=== PATIENT | male | born 1960 | race Two or more races ===

== ENCOUNTER 2018-10-01 12:54 | Inpatient (IN) | payer MEDICAID, OTHER ==
[2018-10-01] MEDS ORDERED: NS 1,000 ML IV ONE (13:22)
[2018-10-01] MEDS ORDERED: NS 500 ML IV ONE (13:42)
--- NOTE | 2018-10-01 13:45 | EDPHY ---
H & P Time Seen by Provider: 10/01/18 13:20 HPI/ROS: HPI Fainting event, facial injury. 58-year-old male by private vehicle with his supervisor carpenters. 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 He walked up some stairs and as he was walking up the stairs he started to feel lightheaded. This then passed he got up to the top of the stairs and felt lightheaded again. It again past after a minute or 2. He then states that he walked into a cord or the light headedness hit him again and he blacked out. He fell to the ground striking his right forehead and his nose. He has a history of type 1 diabetes. He also has a history of end-stage renal disease and is on hemodialysis. He denies any associated chest pain, palpitations, headache, shortness of breath. He denies any neck pain. No loss of sensation or weakness in his extremities. No extremity pain. He has no other complaints. ROS: Constitutional: No fever, no chills. As above. Eyes: No discharge. No changes in vision. ENT: No sore throat. No nasal congestion or rhinorrhea. Respiratory: No cough. No shortness of breath. Cardiac: No chest pain, no palpitations. Gastrointestinal: No abdominal pain, no vomiting, no diarrhea. Genitourinary: No hematuria. No dysuria or increased frequency with urination. Musculoskeletal: No back pain. No neck pain. No extremity pain. Skin: No rashes. Abrasion to forehead, contusion to forehead and nose. Neurological: No headache. No focal weakness or altered sensation. Past medical history: Renal failure, on dialysis Wednesdays and Fridays. He had dialysis yesterday. Type 1 diabetic. Hypertension. Social history: Nonsmoker. He is here with his supervisor carpenters. He lives independently. No alcohol. Physical Exam: General Appearance: Alert, pleasant, he is not in distress. This patient is responding to questions appropriately and in full sentences. This patient appears well-hydrated and well-nourished. Head: Normocephalic atraumatic except for a large, golf ball sized contusion with a superficial abrasion on its surface just above the right brow ridge. He also has a nasal bridge contusion with associated superficial abrasions. No suturable laceration. No crepitus or deformity noted on palpation of these areas.. Face: Facial bones are stable on palpation. Eyes: Pupils equal and round and reactive to light, no pallor or injection. No lid erythema or edema. ENT, Mouth: Mucous membranes moist. Dentition is intact. No malocclusion of the jaw. No tongue lacerations or abrasions. Pharynx is clear. The bilateral nasal canals are clear. No septal hematoma. Respiratory: There are no retractions, lungs are clear to auscultation with good air movement bilaterally. Chest wall is stable to AP and lateral palpation. Cardiovascular: Regular rate and rhythm. No murmur. Gastrointestinal: Abdomen is soft and nontender, no masses, bowel sounds normal. Neurological: Motor sensory function is intact. Cranial nerves are normal. Cerebellar function intact. Skin: Warm and dry, no rashes. No lacerations, abrasions or contusions. Musculoskeletal: Neck is supple and nontender. The trachea is midline. No midline cervical, thoracic, lumbar or sacral tenderness on palpation. No flank tenderness on palpation. Extremities are symmetrical, full range of motion. All joints in the bilateral upper and bilateral lower extremities range without pain or impingement. No tenderness on palpation of the long bones in the bilateral upper and bilateral lower extremities. Psychiatric: No agitation. No depression. Database: EKG: EKG time is 1:11 p.m.; EKG shows a narrow complex normal sinus rhythm with a ventricular rate of 74. The QT interval is prolonged. The LA, QRS, intervals are within normal limits. Possible left ventricular hypertrophy. There are no ST-T wave changes indicative of ischemic or injury pattern. No evidence of right heart strain. No evidence of WPW, Brugada syndrome, hypertrophic cardiomyopathy. Interpreted by me. Imaging: CT head without contrast: Brain negative. Possible small nondisplaced nasal bone fracture. Otherwise negative CT. Soft tissue swelling noted over nasal bridge and right forehead. Results were discussed with staff radiologist Dr. Lambert. Procedures: Emergency department course: Triage vital signs reviewed. He is hypertensive. Triage vital signs are otherwise normal. IV was placed. He was placed on a media monitor. He will be given 500 cc of IV normal saline over the next hour. EKG obtained and reviewed by myself. 3:00 p.m., the patient was re-evaluated, resting comfortably at this time. Repeat neurologic Assessment is nonfocal. Results of his diagnostic workup discussed with him. He is currently complaining of a headache and states that he feels nauseous. He will be given 2 Allenwood tablets and 4 mg of IV Zofran. If appropriate, we will then get this patient up and ambulate him and see how he does. 3:20 p.m., the patient was re-evaluated, he does not feel comfortable going home. He is still complaining of a headache, and nausea. Repeat abdominal exam is soft, nontender nondistended. He is significantly hypertensive at 201/ 96. His repeat neurologic Assessment is nonfocal. He will be given 20 mg of IV labetalol for his hypertension. He will be admitted to the hospitalist service. Hospitalist mitzy. 3:45 p.m., spoke with on-call hospitalist Dr. Clarissa Haines. Case discussed in detail with her. She accepts this patient for admission to telemetry. The patient's remaining emergency department course under my care has been uneventful. 20 min status post IV labetalol as above, patient's blood pressure has come down to 185/82. He was admitted in stable condition. Differential Diagnosis: The differential diagnosis on this patient includes but is not limited to vasovagal syncope, arrhythmia. Acute coronary syndrome, pulmonary embolism, subarachnoid hemorrhage, significant traumatic injury unlikely. This represents a partial list of diagnoses considered. These considerations are based on history, physical exam, past history, reassessment and diagnostic testing. Smoking Status: Never smoked Constitutional: Initial Vital Signs Temperature (C) 37.1 C 10/01/18 13:03 Heart Rate 73 10/01/18 13:03 Respiratory Rate 16 10/01/18 13:03 Blood Pressure 188/78 H 10/01/18 13:03 O2 Sat (%) 97 10/01/18 13:03 O2 Delivery Mode Room Air Allergies/Adverse Reactions: oxycodone Allergy (Verified 10/01/18 13:06) Home Medications: Medication Instructions Recorded Insulin Detemir [Levemir Flextouch] 2 unit SQ HS PRN 10/01/18 Lisinopril [Zestril 40 mg (*)] 40 mg PO DAILY 10/01/18 Medical Decision Making - Diagnostics Imaging Results: Imaging Impressions Head CT 10/01/18 13:40 Impression: 1. Large right frontal subgaleal hematoma without acute intracranial process. 2. Nondisplaced nasal bone fracture. 3. Mild paranasal sinus disease. Findings and recommendations discussed with Juhi Madden MD at 1412 hour, 10/01/2018. - Data Points Laboratory Results: Laboratory Results 10/01/18 13:25 10/01/18 13:25 10/01/18 10/01/18 10/01/18 13:50 13:25 13:25 WBC 5.88 10^3/uL 10^3/uL (3.80-9.50) RBC 3.43 10^6/uL L 10^6/uL (4.40-6.38) Hgb 10.6 g/dL L g/dL (13.7-17.5) Hct 31.7 % L % (40.0-51.0) MCV 92.4 fL fL (81.5-99.8) MCH 30.9 pg pg (27.9-34.1) MCHC 33.4 g/dL g/dL (32.4-36.7) RDW 13.8 % % (11.5-15.2) Plt Count 198 10^3/uL 10^3/uL (150-400) MPV 10.0 fL fL (8.7-11.7) Neut % (Auto) 73.4 % % (39.3-74.2) Lymph % (Auto) 18.4 % % (15.0-45.0) Ritchie % (Auto) 5.4 % % (4.5-13.0) Eos % (Auto) 2.2 % % (0.6-7.6) Baso % (Auto) 0.3 % % (0.3-1.7) Nucleat RBC Rel Count 0.0 % % (0.0-0.2) Absolute Neuts (auto) 4.31 10^3/uL 10^3/uL (1.70-6.50) Absolute Lymphs (auto) 1.08 10^3/uL 10^3/uL (1.00-3.00) Absolute Monos (auto) 0.32 10^3/uL 10^3/uL (0.30-0.80) Absolute Eos (auto) 0.13 10^3/uL 10^3/uL (0.03-0.40) Absolute Basos (auto) 0.02 10^3/uL 10^3/uL (0.02-0.10) Absolute Nucleated RBC 0.00 10^3/uL 10^3/uL (0-0.01) Immature Gran % 0.3 % % (0.0-1.1) Immature Gran # 0.02 10^3/uL 10^3/uL (0.00-0.10) Sodium 139 mEq/L mEq/L (135-145) Potassium 3.3 mEq/L L mEq/L (3.5-5.2) Chloride 98 mEq/L mEq/L (97-110) Carbon Dioxide 30 mEq/l mEq/l (22-31) Anion Gap 11 mEq/L mEq/L (6-14) BUN 33 mg/dL H mg/dL (7-23) Creatinine 4.8 mg/dL H mg/dL (0.7-1.3) Estimated GFR 13 Glucose 122 mg/dL H mg/dL (70-100) Calcium 8.8 mg/dL mg/dL (8.5-10.4) POC Troponin I 0.03 ng/mL ng/mL (0.00-0.08) Medications Given: Discontinued Medications Hydrocodone Bitart/Acetaminophen (Allenwood 5/325) 2 tab PO EDNOW ONE Stop: 10/01/18 15:11 Last Admin: 10/01/18 15:14 Dose: 2 tab Sodium Chloride (Ns) 1,000 mls @ 0 mls/hr IV EDNOW ONE; Wide Open PRN Reason: Protocol Stop: 10/01/18 13:23 Last Admin: 10/01/18 13:35 Dose: Not Given Sodium Chloride (Ns) 500 mls @ 1,000 mls/hr IV EDNOW ONE PRN Reason: Protocol Stop: 10/01/18 14:11 Last Admin: 10/01/18 13:35 Dose: 500 mls Labetalol HCl (Trandate Injection) 20 mg IVP EDNOW ONE Stop: 10/01/18 15:49 Last Admin: 10/01/18 15:56 Dose: 20 mg Ondansetron HCl (Zofran) 4 mg IVP EDNOW ONE Stop: 10/01/18 15:11 Last Admin: 10/01/18 15:14 Dose: 4 mg Point of Care Test Results: Chemistry 10/01/18 13:50 POC Troponin I 0.03 ng/mL ng/mL (0.00-0.08) Departure - Departure Disposition: [facility] Inpatient Acute Clinical Impression: Syncope, Nasal contusion, Forehead contusion, Hypertension, Chronic renal failure, Chronic disease anemia Condition: Fair
[2018-10-01 13:52] LABS: PLATELET COUNT 198 10^3/uL (150-400)
[2018-10-01] MEDS ORDERED: ONDANSETRON 4 MG/2 ML VIAL IVP ONE (15:10)
[2018-10-01] MEDS ORDERED: HYDROCODONE/APAP 5/325 TAB PO ONE (15:10)
[2018-10-01] MEDS ORDERED: LABETALOL HCL 5 MG/ML 20 ML MDV IVP ONE (15:48)
[2018-10-01] MEDS ORDERED: LET GEL TOPICAL 1 EA SYR TP ONE (16:05)
[2018-10-01] MEDS ORDERED: PROMETHAZINE HCL 25 MG/ML INJ IVP PRN (16:59)
[2018-10-01] MEDS ORDERED: ONDANSETRON 4 MG/2 ML VIAL IVP PRN (16:59)
[2018-10-01] MEDS ORDERED: ACETAMINOPHEN 325 MG TAB PO PRN (16:59)
[2018-10-01] MEDS ORDERED: ONDANSETRON DISINTEGRATING 4 MG TAB PO PRN (16:59)
[2018-10-01] MEDS ORDERED: INSULIN DETEMIR SQ PRN (17:03)
[2018-10-01] MEDS ORDERED: D50W 25 GM/50 ML SYR IVP PRN (17:03)
--- NOTE | 2018-10-01 17:06 | PDGENHP ---
History and Physical - Chief Complaint sycnope - History of Present Illness 58 yo M with PMH that includes ESRD on chronic MWF HD, DM2 and poorly controlled HTN who presents s/p syncopal event occurring today while at work. He recently moved back to [place] from [place] and states that he has been working extra hard to try to get financially on his feet. 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 He notes that he did not really have much warning prior to fainting, other than the lightheadedness/ wooziness which had been present on and off for hours. He has never fainted before. He states he has never had any cardiac issues in the past. He did not have chest pain or palpitations prior to or since the episode. He does note that he continues to feel dizzy, especially when he turns his head and for that reason does not want to turn his head at all. History Information - Allergies/Home Medication List Allergies/Adverse Reactions: oxycodone Allergy (Verified 10/01/18 13:06) Home Medications: Insulin Detemir [Levemir Flextouch] 2 unit SQ HS PRN 10/01/18 [Last Taken Unknown] Lisinopril [Zestril 40 mg (*)] 40 mg PO DAILY 10/01/18 [Last Taken 10/01/18] I have personally reviewed and updated: family history, medical history, social history, surgical history - Past Medical History diabetes type 2, ESRD, hypertension, hyperlipidemia - Surgical History Additional surgical history: fistula placement. wrist surgery - Family History Positive for: non-pertinent - Social History Smoking Status: Never smoked Alcohol Use: Rarely Drug Use: None Additional social history: currently living with his sister, moved to [place] from [place] 2 days ago, originally from [place] Review of Systems Review of Systems: ROS: 10pt was reviewed & negative except for what was stated in HPI & below Physical Exam Physical Exam: Temp Pulse Resp BP Pulse Ox 37.1 C 73 18 201/96 H 94 10/01/18 13:03 10/01/18 14:00 10/01/18 14:00 10/01/18 14:00 10/01/18 14:00 Constitutional: appears nourished, uncomfortable Eyes: PERRL, other (periorbital ecchymoses on right) Ears, Nose, Mouth, Throat: moist mucous membranes Cardiovascular: regular rate and rhythym, no murmur, rub, or gallop, No edema Respiratory: no respiratory distress, no rales or rhonchi, clear to auscultation Gastrointestinal: normoactive bowel sounds, soft, non-tender abdomen Genitourinary: no bladder tenderness Skin: warm, normal color Musculoskeletal: full muscle strength Neurologic: AAOx3 Psychiatric: interacting appropriately, not anxious, not encephalopathic Lab Data & Imaging Review 10/01/18 13:25 10/01/18 13:25 WBC 5.88 10^3/uL (3.80-9.50) 10/01/18 13:25 RBC 3.43 10^6/uL (4.40-6.38) L 10/01/18 13:25 Hgb 10.6 g/dL (13.7-17.5) L 10/01/18 13:25 Hct 31.7 % (40.0-51.0) L 10/01/18 13:25 MCV 92.4 fL (81.5-99.8) 10/01/18 13:25 MCH 30.9 pg (27.9-34.1) 10/01/18 13:25 MCHC 33.4 g/dL (32.4-36.7) 10/01/18 13:25 RDW 13.8 % (11.5-15.2) 10/01/18 13:25 Plt Count 198 10^3/uL (150-400) 10/01/18 13:25 MPV 10.0 fL (8.7-11.7) 10/01/18 13:25 Neut % (Auto) 73.4 % (39.3-74.2) 10/01/18 13:25 Lymph % (Auto) 18.4 % (15.0-45.0) 10/01/18 13:25 Kinney % (Auto) 5.4 % (4.5-13.0) 10/01/18 13:25 Eos % (Auto) 2.2 % (0.6-7.6) 10/01/18 13:25 Baso % (Auto) 0.3 % (0.3-1.7) 10/01/18 13:25 Nucleat RBC Rel Count 0.0 % (0.0-0.2) 10/01/18 13:25 Absolute Neuts (auto) 4.31 10^3/uL (1.70-6.50) 10/01/18 13:25 Absolute Lymphs (auto) 1.08 10^3/uL (1.00-3.00) 10/01/18 13:25 Absolute Monos (auto) 0.32 10^3/uL (0.30-0.80) 10/01/18 13:25 Absolute Eos (auto) 0.13 10^3/uL (0.03-0.40) 10/01/18 13:25 Absolute Basos (auto) 0.02 10^3/uL (0.02-0.10) 10/01/18 13:25 Absolute Nucleated RBC 0.00 10^3/uL (0-0.01) 10/01/18 13:25 Immature Gran % 0.3 % (0.0-1.1) 10/01/18 13:25 Immature Gran # 0.02 10^3/uL (0.00-0.10) 10/01/18 13:25 Sodium 139 mEq/L (135-145) 10/01/18 13:25 Potassium 3.3 mEq/L (3.5-5.2) L 10/01/18 13:25 Chloride 98 mEq/L (97-110) 10/01/18 13:25 Carbon Dioxide 30 mEq/l (22-31) 10/01/18 13:25 Anion Gap 11 mEq/L (6-14) 10/01/18 13:25 BUN 33 mg/dL (7-23) H 10/01/18 13:25 Creatinine 4.8 mg/dL (0.7-1.3) H 10/01/18 13:25 Estimated GFR 13 10/01/18 13:25 Glucose 122 mg/dL (70-100) H 10/01/18 13:25 Calcium 8.8 mg/dL (8.5-10.4) 10/01/18 13:25 POC Troponin I 0.03 ng/mL (0.00-0.08) 10/01/18 13:50 Visualized and Interpreted imaging results: Yes Interpretation: head CT: nondisplaced nasal fracture Visualized and Interpreted EKG results: Yes EKG Interpretation: Positive for: normal sinsus rhythm, T waves inversion Assessment & Plan Assessment: Syncope (Acute) Nasal contusion (Acute) Forehead contusion (Acute) Hypertension (Acute) Chronic renal failure (Acute) Chronic disease anemia (Acute) 58 yo M with hx of ESRD, poorly controlled HTN and DM2 presenting with syncopal episode # syncope: patient reports some preceding sxs of lightheadedness and dizziness, but the actual syncopal event was without much warning and he suffered significant injuries to his face including nasal fracture (non displaced and non operative). Differential would be for cardiac syncope versus vasovagal versus related to vertigo that he seems to be describing as well. Will plan to monitor on tele, serial trops and ecg overnight, cardiology consult requested for the am. # uncontrolled HTN: patient reports that his BP has been poorly controlled for quite some time and states that he is compliant with medications but that his doctors have been reluctant to change his meds. Continue home lisinopril, prn hydralazine for sbp > 180 with goal to reduce by 10-15% overnight # ESRD: per patient renal failure due to infection he had in the past as well as to his htn/DM2; appreciate renal consult--he will be due for HD in am if not discharged in time for his OP visit # vertigo: patient reporting some vertigo like sxs both preceding and subsequent to his syncope though the actual event seems inconsistent with drop attack given severity of injuries etc. PT/OT to evaluate in am, no nystagmus on exam # acute mild TBI: without any e/o injury to brain on head ct and non focal neurologic exam, will monitor but sxs quite mild currently # DM2: well controlled, A1c of 5.9, continue home regimen # observation status Patient new to my care. Old records reviewed and summarized as above. Care plan reviewed with ER doctor and Dr. Roe of renal.
[2018-10-01] MEDS: HYDROmorphONE/DILAUDID 1 MG/ML INJ IVP PRN (18:41)
--- NOTE | 2018-10-01 19:20 | GCON ---
[f rep st] CONSULTATION DATE OF CONSULTATION: 10/01/2018 REASON FOR CONSULTATION: Opinion regarding end-stage kidney failure. HISTORY OF PRESENT ILLNESS: The patient is a very pleasant 58-year-old gentleman with end-stage kidn ey failure due to diabetes mellitus type 2 and hypertension, on 3 times weekly dialysis at the [facility] on [facility] [address]. He spent the last 4 months in [place] with his daughter so that he did not have to w inter in [place]. He has recently returned from [place] and back on dialysis in [place]. 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 He leaned up against [facility] building. The dizziness and lightheadedness went away. He continued to clean and then woke up on the field and somebody was trying to get him to wake up. He was not having chest pain, shortness of breath, nausea, vomiting, cough, or sputum production. No hemoptysis, hematemesis, epistaxis, except for when he fell on his face on the ground. No blurry vision, double vision, headache, orthopnea, p aroxysmal nocturnal dyspnea, palpitations, or syncope. He does not have any history of cardiovascula r disease. Particularly, he has not had bypass surgery, carotid surgery, or coronary stents. PAST MEDICAL HISTORY: Significant for: 1. End-stage kidney failure due to diabetes mellitus type 2 and hypertension. 2. Diabetes mellitus type 2. 3. Hypertension. CURRENT MEDICATIONS: Include insulin and lisinopril 40 mg daily. ALLERGIES: Oxycodone. FAMILY HISTORY: Positive for diabetes and hypertension. Negative for kidney failure. SOCIAL HISTORY: He is a [place] of [place]. He recently returned from [place] where he lived with h is daughter for 4 months. He does not use tobacco, alcohol, IV or recreational drugs, although he di d say he smoked a joint not too long ago. He works at the [employer]. REVIEW OF SYSTEMS: A complete 12-point review of systems was performed with pertinent positives and negatives as per the previous sections. PHYSICAL EXAMINATION: VITAL SIGNS: Blood pressure is 181/87. He is in a fair amount of pain after his fall. Pulse 71, respirations 18, temperature 37.1 degrees. He has had 1 L of normal saline give n in the emergency department. GENERAL: He is awake, alert, cooperative, pleasant, and in no acute distress. HEENT: His right eye is closed and bruised. He has a scrape on his nose. NECK: No lymp hadenopathy or thyromegaly. HEART: Regular. Grade 1/6 to 2/6 systolic murmur. No rub. No S3. ELIZABETH NGS: No rales, rhonchi, or wheezes. ABDOMEN: Bowel sounds are positive. Soft, nontender, nondiste nded. No obvious organomegaly, masses, or bruits. EXTREMITIES: No edema, cyanosis, or clubbing. N EUROLOGIC: No asterixis. SKIN: He has changes of arterial insufficiency in his lower extremities b ilaterally. LYMPH: No palpable lymphadenopathy or lymphedema. MUSCULOSKELETAL: No effusions. He is tender over his forehead and nose. He also has a nice well-functioning left upper arm arterioveno us fistula with a good bruit and thrill. LABORATORY: WBC 5.9; hemoglobin 10.6; hematocrit 31.7; platelet count 198,000. Serum sodium 139, po tassium 3.3, chloride 98, CO2 30, BUN 33, creatinine 4.8, glucose 122, calcium 8.8. Troponin 0.030. IMAGING: CT scan of the head showed a nondisplaced nasal fracture, as well as subgaleal hematoma ove r the right frontal bone, but no acute intracranial abnormalities. IMPRESSION: 1. End-stage kidney failure on 3 times weekly hemodialysis. His last dialysis was yesterday. 2. Hypertension, certainly could be from pain. Also, he received 1000 cc of normal saline. He is o n lisinopril. We may want to bring it down more acutely with some hydralazine. 3. Syncopal episode while at work. Initial troponin levels are negative. Cardiovascular evaluation is underway. 4. Mild hypokalemia. Would suggest we give him some potassium chloride orally tonight. 5. Pain control. 6. Plan on dialysis tomorrow. Thank you for allowing me to participate in the care of your patient. If there are any questions, pl ease do not hesitate to contact us. We will be following along with you. /[id number]/MODL
[2018-10-01] MEDS: INSULIN LISPRO 100 UNIT/ML SC SCH (19:26)
[2018-10-01] MEDS: HYDROCODONE/APAP 5/325 TAB PO PRN (20:41)
--- NOTE | 2018-10-01 20:58 | CPEKG ---
Test Reason : OPEN Blood Pressure : / mmHG Vent. Rate : 074 BPM Atrial Rate : 074 BPM P-R Int : 158 ms QRS Dur : 104 ms QT Int : 477 ms P-R-T Axes : 014 -37 028 degrees QTc Int : 530 ms Sinus rhythm LVH with secondary repolarization abnormality Prolonged QT interval Confirmed by Juhi Madden ([id number]) on 10/01/2018 8:57:33 PM Referred By: PHYSICIAN ED Confirmed By:Juhi aMdden
[2018-10-01] MEDS ORDERED: hydrALAZINE 20 MG/ML VIAL IVP PRN (21:20)
[2018-10-02] MEDS: HYDROCODONE/APAP 5/325 TAB PO PRN ×4 (03:43→21:08)
[2018-10-02 04:26] LABS: PLATELET COUNT 161 10^3/uL (150-400)
[2018-10-02] MEDS: INSULIN LISPRO 100 UNIT/ML SC SCH ×3 (07:36→19:00)
[2018-10-02] MEDS: LISINOPRIL 40 MG TAB PO SCH ×2 (08:58→11:59)
--- NOTE | 2018-10-02 09:45 | SOAPPROG ---
SOAP Progress Note Assessment/Plan: Assessment/Plan: ESRD: on HD MWF. - Pt seen on HD today per routine. HTN: continue home meds. OZ: will check phos with am labs. Subjective: No acute events overnight. Pt notes that he is having some nausea, no more dizziness and has not had any more syncopal episodes. He denies any CP, dyspnea , palpitations. He does have pain in his face. Objective: Vital Signs Temp Pulse Resp BP Pulse Ox 36.7 C 62 14 137/79 H 98 10/02/18 06:53 10/02/18 06:53 10/02/18 06:53 10/02/18 06:53 10/02/18 06:53 Laboratory Results 10/02/18 03:25 10/02/18 03:25 10/01/18 10/02/18 10/03/18 05:59 05:59 05:59 Intake Total 1200 Output Total 125 Balance 1200 -125 General: alert and oriented, no acute distress Eyes: R eyelid swollen with ecchymosis CV: RRR Resp: nonlabored respirations Abd: Soft, NT/ND Ext: no edema BLE Neuro: CN II-XII grossly intact PsycH: cooperative Access: LUE AVF cannulated ICD10 Worksheet Patient Problems: Problems Problem Status Onset Chronic disease anemia Acute Chronic renal failure Acute Forehead contusion Acute Hypertension Acute Nasal contusion Acute Syncope Acute
--- NOTE | 2018-10-02 11:18 | ASMTCMCOM ---
CM Note CM Note Notes: Patient admitted after syncopal episode. He has a hx of ESRD. He gets dialysis at [facility] on a MWF schedule. He is normally independent. Lives w his sister. PT/OT ordered, although I anticipate he will not have any d/c needs. CM available if this changes. Current CM discharge plan: home independent Date Signed: 10/02/2018 11:16 AM Electronically Signed By:Ernestina Mcwilliams RN
[2018-10-02] MEDS ORDERED: INSULIN DETEMIR SQ PRN (11:30)
--- NOTE | 2018-10-02 11:33 | ECHO ---
[email or web address] [address] [address] Main: [phone] Echocardiography Examination Transthoracic Name: ELISHA MARINELLI MR#: [id number] Study Date: 10/02/2018 Study Time: 08:06 AM Date of : 1960 Age: 58 year(s) Height: 180.3 cm (71 in.) Weight: 88.91 kg (196 lb.) BSA: 2.09 m2 Gender: Male Examination: Echo Contrast: Image Quality: Rhythm: Normal sinus rhythm Heart Rate: 68 bpm BP: 137 mmHg/79 mmHg Indication: Cardiac: syncope, HTN, Renal Failure, Dialysis Procedure Staff Referring Physician: Zipper Measurer: Nelson Santos RDCS Reading Physician: Rusty Rojas MD Requesting Provider: Ordering Physician: Clarissa Haines Indication: Cardiac: syncope, HTN, Renal Failure, Dialysis Measurements Chambers AV/MV Label Value Normal Value Label Value Normal Value LVOT Vmax 0.97 m/s (0.7m/s - 1.1m/s) AV PGmax 14 mmHg LVOTd 2.1 cm (1.9cm - 2.1cm) AV PGmean 8 mmHg LVOT VTI 24.4 cm (18cm - 22cm) AV Vmax 1.9 m/s LVDd, 2D 5.4 cm (4.2cm - 5.9cm) CARRILLO (Vmax) 1.8 cm2 LVDs, 2D 3.5 cm (2.1cm - 4cm) CARRILLO (VTI) 1.9 cm2 IVSd, 2D 0.9 cm (0.6cm - 1.1cm) MV E Vmax 1.38 m/s LVPWd, 2D 1.3 cm (0.6cm - 1cm) MV A Vmax 0.64 m/s LVEF, 2D 63 % (54% - 74%) MV E/A 2.16 LVOT PGmean 2 mmHg MV E/E' lateral 17.8 LVOT Vmean 0.6 m/s MV E/E' septal 33.7 (0.5 - 1.7) RVDd, 2D 2.6 cm (1.9cm - 3.8cm) MV E' septal 0.04 m/s LA Volume, BP 85 ml (18ml - 58ml) MV E' lateral 0.08 m/s LAESV index, BP 40.7 ml/m2 MV E/E' mean 23 RA Area 26.6 cm2 MV E' mean 0.06 m/s Additional Vessels TV/PV Label Value Normal Value Label Value Normal Value AoRoot, MM 2.9 cm (2.2cm - 3.7cm) RA Pressure 5 mmHg RVSP 75 mmHg TR Pmax 70 mmHg Patient: ELISHA MARINELLI Study Date: 10/02/2018 Page 1 of 3 08:06 AM TR Vmax 4.19 m/s PV PGmax 5 mmHg PV Vmax, Caliper 1.09 m/s (0.6m/s - 0.9m/s) Conclusions Left Ventricle: Left ventricle is normal in size. The EF is visually estimated to be 65 %. There is mild concentric left ventricular hypertrophy. There are no regional wall motion abnormalities. Grade III Diastolic Dysfunction. Left Atrium: The left atrium is mildly dilated. Mitral Valve: Mild mitral regurgitation. Aortic Valve: There is no aortic stenosis. Aortic leaflets exhibit mild calcification. Tricuspid Valve: Moderate tricuspid regurgitation. Right Ventricular systolic pressure is measured at 75 mmHg. Pericardium: No pericardial effusion. Overall Conclusions: There is no previous echocardiogram for comparison. Findings Left Ventricle: Left ventricle is normal in size. The EF is visually estimated to be 65 %. EF range is estimated at 65 % - 75 %. There is mild concentric left ventricular hypertrophy. There are no regional wall motion abnormalities. Grade III Diastolic Dysfunction. Right Ventricle: Normal size right ventricle. Right ventricular systolic function is normal. Left Atrium: The left atrium is mildly dilated. Left Atrium Measurements LAESV index, BP is 40.7 ml/m2. Right Atrium: The right atrium is mildly dilated. Mitral Valve: Mitral valve appears structurally normal. Mild mitral regurgitation. There is mild mitral calcification. Aortic Valve: No significant aortic valve regurgitation. There is no aortic stenosis. Aortic leaflets exhibit mild calcification. Tricuspid Valve: Moderate tricuspid regurgitation. Right Ventricular systolic pressure is measured at 75 mmHg. Pulmonary artery pressure severely increased. Patient: ELISHA MARINELLI Study Date: 10/02/2018 Page 2 of 3 08:06 AM Pulmonic Valve: Pulmonic leaflets are normal in appearance and function. No pulmonic valve regurgitation is evident. Aorta: The aorta is normal. The aortic root size in M-mode measures 2.9 cm. Aorta Measurements AoRoot, MM is 2.9 cm. Pericardium: No pericardial effusion. Exam Details Procedure Ordered: Echo (No Signature Object) Patient: ELISHA MARINELLI Study Date: 10/02/2018 Page 3 of 3 08:06 AM [id number]
[2018-10-02] MEDS ORDERED: amLODIPine BESYLATE 5 MG TAB PO SCH (14:15)
--- NOTE | 2018-10-02 15:44 | HOSPPROG ---
Hospitalist Progress Note Assessment/Plan: 58 yo M with hx of ESRD, poorly controlled HTN and DM2 presenting with syncopal episode # syncope: Echo reviewed, along with telemetry. No obvious explanation for syncopal episode. Likely will require monitoring specialist for outpatient. -cont tele -cards consulted # Hypertensive urgency:on lisinopril 40, systolics today over 200 and patient wiht NV. PRN hydralazine ordered but remained hypertensive despite doses of this. Added norvasc 5mg qday for now. # ESRD: per patient renal failure due to infection he had in the past as well as to his htn/DM2; I discussed with neprholgy, taken to HD today, renal made no recommendatiosn regarding managemetn of BP # vertigo: patient reporting some vertigo like sxs both preceding and subsequent to his syncope though the actual event seems inconsistent with drop attack given severity of injuries etc. PT/OT to evaluate in am, no nystagmus on exam # acute mild TBI: without any e/o injury to brain on head ct and non focal neurologic exam, will monitor but sxs quite mild currently # DM2: well controlled, A1c of 5.9, on PRN Lantus. Held and ordered SSI while in house. # change to inpatient for hypertensive urgency. patient new to me, old records, chart, labs and imaging reviewed. Subjective: has a headache and some nausea. Objective: Vital Signs Temp Pulse Resp BP Pulse Ox 36.7 C 76 16 186/81 H 92 10/02/18 12:05 10/02/18 12:05 10/02/18 12:05 10/02/18 13:55 10/02/18 12:05 Laboratory Results 10/02/18 03:25 10/02/18 03:25 10/01/18 10/02/18 10/03/18 05:59 05:59 05:59 Intake Total 1200 Output Total 125 Balance 1200 -125 - Time Spent With Patient Time Spent with Patient: greater than 35 minutes Time Spent with Patient: Greater than 35 minutes spent on this patients care, greater than 50% of time spent counseling, educating, and coordinating care regarding the above mentioned plan. - Physical Exam Constitutional: no apparent distress, appears nourished, not in pain Eyes: PERRL, anicteric sclera, EOMI Ears, Nose, Mouth, Throat: moist mucous membranes, hearing normal, ears appear normal, no oral mucosal ulcers Cardiovascular: regular rate and rhythym, no murmur, rub, or gallop Respiratory: no respiratory distress, no rales or rhonchi, clear to auscultation Gastrointestinal: normoactive bowel sounds, soft, non-tender abdomen, no palpable masses Genitourinary: no bladder fullness, no bladder tenderness, no renal bruits Skin: no rashes or abrasions, no fluctuance, no induration Musculoskeletal: full muscle strength, no muscle tenderness, normal joint ROM Neurologic: AAOx3, sensation intact bilaterally Psychiatric: interacting appropriately, not anxious, not encephalopathic, thought process linear Lymph, Heme, Immunologic: no cervical LAD, no supraclavicular LAD ICD10 Worksheet Patient Problems: Problems Problem Status Onset Chronic disease anemia Acute Chronic renal failure Acute Forehead contusion Acute Hypertension Acute Nasal contusion Acute Syncope Acute
--- NOTE | 2018-10-02 16:08 | GCON ---
[f rep st] CONSULTATION DATE OF CONSULTATION: 10/02/2018 REFERRING PHYSICIAN: Clarissa Haines MD REASON FOR CONSULTATION: Syncope. HISTORY: The patient is a 58-year-old male with hypertension and diabetes, but no documented cardiac history. 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. As he was making his way up some steps, he began to feel v george dizzy and lightheaded. He sat down for a moment and the sensation passed. When he got back up a nd continued up the steps, the sensation returned. As he entered the concourse level, he passed out and fell, striking his forehead and face. He says that prior to passing out, he did notice a sensati on of diaphoresis. He denied any chest pain, palpitations, or significant dyspnea. He has no prior history of syncope. He was brought to the emergency room where he had a large contusion on his foreh ead, a black eye and a nasal fracture. He has been observed overnight. He had an echocardiogram thi s morning. His head CT was negative for skull fracture or intracranial pathology. His admission ECG demonstrated normal sinus rhythm with a mildly prolonged QT interval. As mentioned, he has no ongoing cardiac history. However, when he was diagnosed with end-stage renal disease, he had a prolonged hospital stay at [facility]. He said that he was told he had "fluid around my heart." He had multiple tests and spent the better part of 4 weeks in the hospital . PAST MEDICAL HISTORY: As mentioned, he has end-stage renal disease on dialysis, hypertension and typ e 2 diabetes. Hyperlipidemia as listed in his history and physical. PAST SURGICAL HISTORY: He had surgery to create his dialysis fistula. He had surgery on his wrist. FAMILY HISTORY: Noncontributory. MEDICATIONS: His home medications consist of insulin and lisinopril 40 mg daily. ALLERGIES: Oxycodone. SOCIAL HISTORY: He is single. He has a daughter in [place]. He is currently living with his sister . He has never been a smoker. He does not consume significant amounts of alcohol. REVIEW OF SYSTEMS: Notable for the episode of syncope that prompted this hospital encounter. Otherw ise, a 10-point review was negative. PHYSICAL EXAMINATION: VITAL SIGNS: Heart rate 76 with sinus rhythm on the monitor, blood pressure 1 86/81, O2 saturation 92% on room air. HEAD AND NECK: He has a golf ball-sized contusion over the ri ght side of the forehead. He also has a black eye on the right. No scleral icterus. Mucous membran es are moist. Carotid pulses are 2+ without bruits. There is no JVD. CHEST: Lung olsen clear to auscultation. CARDIAC: Regular rate and rhythm with a normal S1 and S2. No murmur or gallop. ABDO MEN: Soft, nontender, nondistended with normal bowel sounds. EXTREMITIES: 2+ pulses in all 4 extre mities. No lower extremity edema. LABORATORY STUDIES: Sodium 139, potassium 3.3, BUN and creatinine 33 and 4.8. Troponin levels have come back at 0.03, 0.077 and 0.056. His CBC demonstrates a white blood cell count of 5.88 with hemog lobin at 10.6 and hematocrit of 31.7. Platelet count is 198,000. ECG: His ECG demonstrates normal sinus rhythm at 74 beats per minute. There are no Q-waves or condu ction system disturbances. He has voltage criteria for left ventricular hypertrophy. He has diffuse nonspecific ST-T wave abnormalities. ECHOCARDIOGRAM: His echocardiogram demonstrates normal left ventricular size. His LVEF is 65% witho ut regional wall motion abnormalities. He has mild concentric left ventricular hypertrophy with asso ciated diastolic dysfunction. He has aortic valve sclerosis without stenosis or regurgitation. He h as mild mitral regurgitation and moderate tricuspid regurgitation with an estimated PA systolic press ure of 75 mmHg. IMPRESSION: This is a 58-year-old male who presents with an episode of syncope. He states that he h ad little, if anything to eat or drink prior to yesterday afternoon's episode. He sustained mild-to- moderate facial trauma from the fall. He has never had syncope before. Diaphoresis was reported. T he most likely etiology is a vasovagal episode. His troponin is minimally elevated, but he does not report any chest discomfort. His echocardiogram demonstrates normal left ventricular systolic functi on without any wall motion abnormalities. He has not had any arrhythmias on telemetry overnight. He does not demonstrate any evidence of congestive heart failure. RECOMMENDATIONS: From my perspective, he can be discharged when he is medically stable. His blood p ressure is running high and would increase his daily dose of amlodipine to 10 mg. He lives in [place] near [address] [place] [address]. If he were located nearer to [place], I would recommend that he see us as an outpatient for a 2-week Zio heart monitor and a nuclear stress test. However, it may be more rosemary t for him to reconnect with his PCP and obtain referral to a cardiology practice closer to his home. /[id number]/MODL
[2018-10-02] MEDS: HEPARIN 5,000 UNIT/0.5 ML INJ SC SCH (21:09)
[2018-10-02] MEDS: HYDROmorphONE/DILAUDID 1 MG/ML INJ IVP PRN (22:40)
[2018-10-03] MEDS: HYDROCODONE/APAP 5/325 TAB PO PRN ×2 (04:07→13:38)
[2018-10-03] MEDS: HEPARIN 5,000 UNIT/0.5 ML INJ SC SCH (05:33)
[2018-10-03] MEDS: INSULIN LISPRO 100 UNIT/ML SC SCH ×2 (07:04→11:59)
--- NOTE | 2018-10-03 07:32 | CPEKG ---
Test Reason : syncope Blood Pressure : / mmHG Vent. Rate : 068 BPM Atrial Rate : 068 BPM P-R Int : 159 ms QRS Dur : 102 ms QT Int : 469 ms P-R-T Axes : 074 -38 058 degrees QTc Int : 499 ms Sinus rhythm Left ventricular hypertrophy Borderline prolonged QT interval Confirmed by Rolando Fair ([id number]) on 10/03/2018 7:31:53 AM Referred By: Clarissa Haines Confirmed By:Rolando Fair
[2018-10-03] MEDS: LISINOPRIL 40 MG TAB PO SCH (07:54)
--- NOTE | 2018-10-03 10:49 | SOAPPROG ---
SOAP Progress Note Assessment/Plan: Assessment: ESRD: Cont HD MWF. -LUE AVF appears patent -Will reduce UF goal to see if this avoids the post-HD N/V experienced yesterday , if so may need to increase EDW HTN: Improved control, continue home meds. OZ: Rochelle WNL Anemia: Hgb within ESRD range though lower today, if trend continues will give JOHN PAUL tomorrow Plan: 10/03/18 10:47 10/03/18 10:49 Subjective: Tolerated HD well yesterday except he had some N/V after which has since resolved. No other complaints at this time. Objective: Vital Signs Temp Pulse Resp BP Pulse Ox 36.7 C 67 15 146/70 H 98 10/03/18 09:01 10/03/18 09:01 10/03/18 09:01 10/03/18 09:01 10/03/18 09:01 Laboratory Results 10/03/18 04:00 10/02/18 10/03/18 10/04/18 05:59 05:59 05:59 Intake Total 400 Output Total 300 Balance 100 Physical Exam - Physical Exam General Appearance: WD/WN, no apparent distress EENT: other (R eye swollen shut with abrasion/contusion superior to R eyebrow) Respiratory: lungs clear, normal breath sounds Cardiac/Chest: regular rate, rhythm Abdomen: non-tender, soft Extremities: other (LUE AVF +B/T), No swelling ICD10 Worksheet Patient Problems: Problems Problem Status Onset Chronic disease anemia Acute Chronic renal failure Acute Forehead contusion Acute Hypertension Acute Nasal contusion Acute Syncope Acute
[2018-10-03 12:24] VITALS: BP 180/82
--- NOTE | 2018-10-03 12:46 | PDMN ---
Medical Necessity Medical necessity: Change to IP, as of 10/02/18, per MD & MCG [id number]; los >2 mn for eval/tx of hypertensive urgency (BP 200/89) following recent syncopal episode w/fall; requiring further monitoring, Cardiology consult & med management; hx ESRD, poorly controlled htn & diabetes
--- NOTE | 2018-10-03 13:12 | ASMTLACE ---
LACE Length of stay for Answers: 2 days current admission Acuity / Level of Answers: Yes Care: Did the patient have an inpatient admission? Comorbidities - select Answers: Diabetes (uncontrolled or all that apply controlled) Moderate or severe liver or renal disease Other Notes: HTN # of Emergency department Answers: 1-2 visits in the last 6 months Score: 12 Date Signed: 10/03/2018 01:11 PM Electronically Signed By:Hetal Bergeron RN
--- NOTE | 2018-10-03 16:39 | PDDCSUM ---
Discharge Summary Discharge Summary: Discharge diagnosis Syncope Hypertensive urgency End-stage renal disease Concussion Facial laceration Diabetes The patient was admitted after suffering a syncopal episode. Cardiology was consulted and echocardiogram was obtained. The echocardiogram showed no overt abnormality and was essentially within normal limits. Cardiology recommended placement of an event monitor for further evaluation. The patient said that he lived in [place] and did not want to have to establish care with Cardiology Clinic in [place]. It was recommended that he establish care with a impregnating helper in [place] and have an event monitor placed to further evaluate his syncopal episode. He was seen by Nephrology and underwent hemodialysis while here. He did have severely elevated blood pressure and amlodipine was added and up titrated while here. He was discharged home to follow up with primary care provider for further evaluation of his hypertension and syncopal episode. He was told to return to the emergency room immediately if he developed intractable nausea vomiting blurry vision or lethargy and explained that this may be due to his concussion. He expressed understanding in said that he would do so. Disposition Home with family New medications Amlodipine 10 mg daily I spent over 30 min on the discharge of this patient
== END 2018-10-03 14:00 | disposition home or self-care (01) | DRG 88 ==
LOC: INTOOBSV 15:48 → F2W 18:19 → OBSVTOIN 10-02 17:38
PROVIDERS: ADMIT Internal Medicine; ATTEND Internal Medicine
PROC: 5A1D70Z Performance of Urinary Filtration, Intermittent, Less than 6 Hours Per Day (ICD-10-PCS; principal; 2018-10-02)
DX: S06.0X1A Concussion with loss of consciousness of 30 minutes or less, initial encounter (principal); I12.0 Hypertensive chronic kidney disease with stage 5 chronic kidney disease or end stage renal disease; N18.6 End stage renal disease; S01.81XA Laceration without foreign body of other part of head, initial encounter; W18.09XA Striking against other object with subsequent fall, initial encounter; Y93.H9 Activity, other involving exterior property and land maintenance, building and construction; Y92.214 College as the place of occurrence of the external cause; Y99.0 Civilian activity done for income or pay; I16.0 Hypertensive urgency; E10.9 Type 1 diabetes mellitus without complications; E78.5 Hyperlipidemia, unspecified; Z79.4 Long term (current) use of insulin; Z99.2 Dependence on renal dialysis
CPT/HCPCS: 84484-ER; 92523-GN; 96374; 97161-GP; 97165-GO; G0378; J0360; J1170; J1815; J2405; J2550